=== PATIENT | female | born 1970 | race Two or more races ===

== ENCOUNTER 2019-12-15 17:35 | Emergency (ER) | payer MEDICAID ==
[~2019-12-15] VITALS: Ht 157.5 cm; Wt 68.3 kg
[2019-12-15 20:54] LABS: BASOPHILS % 0.9 % (0.0-2.0); EOSINOPHILS % 2.3 % (0.0-5.0); HEMATOCRIT. 40.4 % (36.0-48.0); HEMOGLOBIN. 13.8 g/dL (12.0-16.0); LYMPHOCYTES % 39.7 % (20.0-50.0); MEAN CORPUSCULAR HEMOGLOBIN 31.5 pg (28.0-32.0); MEAN CORPUSCULAR VOLUME 92.1 fL (81.0-99.0); MEAN PLATELET VOLUME 8.9 fl (7.4-10.4); NEUTROPHILS % 50.1 % (40.0-76.0); PLATELET 328 x1000/uL (130-400); RED BLOOD CELL COUNT 4.38 mill/uL (4.2-5.4); RED CELL DISTRIBUTION WIDTH 13.6 % (11.6-14.6)
[2019-12-15 20:59] LABS: CHLORIDE 103 mEq/L (98-107)
[2019-12-15 21:06] LABS: D-DIMER < 0.19 mg/L FEU (<0.50); INR 0.9; PARTIAL THROMBOPLASTIN TIME 27.5 sec (23.4-31.0); PROTHROMBIN TIME 10.3 sec (9.6-11.0)
[2019-12-15] MEDS ORDERED: ASPIRIN 81MG TABLET PO ONE (23:00)
[2019-12-15] MEDS ORDERED: HYDROCODONE/ACETAMINOPHEN 5/325MG TABLET PO ONE (23:00)
[2019-12-16] MEDS ORDERED: ACETAMINOPHEN 325MG TABLET PO PRN (10:00)
[2019-12-16] MEDS ORDERED: ONDANSETRON HCL 4MG/2ML INJ IV PRN (10:00)
[2019-12-16] MEDS ORDERED: IPRATROPIUM/ALBUTEROL 0.5-3(2.5)MG/3ML NEB HHN PRN (10:00)
[2019-12-16 10:29] LABS: LDL CHOLESTEROL 173 mg/dL (5-100)
[2019-12-16 10:31] LABS: HDL CHOLESTEROL 56 mg/dL (40-59)
[2019-12-16] MEDS ORDERED: HYDROCODONE/ACETAMINOPHEN 5/325MG TABLET PO PRN (13:45)
[2019-12-16 14:25] VITALS: BP 133/85
[2019-12-16] MEDS ORDERED: ATOR20TA MT (14:30)
[2019-12-16] MEDS ORDERED: HYDR-4001 MT (14:30)
[2019-12-17] MEDS ORDERED: ASPIRIN 81MG TABLET PO SCH (09:00)
== END 2019-12-16 14:52 | disposition home or self-care (01) ==
LOC: ER 17:35 → CANRESERV 12-16 14:48 → ENRESERV 12-16 14:48 → ER 12-16 14:52 → CANBEDREQ 12-16 14:53
DX: F41.1 Generalized anxiety disorder (principal); F43.0 Acute stress reaction; Z63.4 Disappearance and death of family member; E78.5 Hyperlipidemia, unspecified; R94.31 Abnormal electrocardiogram [ECG] [EKG]; Z85.41 Personal history of malignant neoplasm of cervix uteri; Z90.710 Acquired absence of both cervix and uterus; Z90.5 Acquired absence of kidney
CPT/HCPCS: 36415; 71045; 80053; 80061; 82962; 83880; 84443; 84484; 85025; 85379; 85610; 85730; 93005; 99285; Z7610